=== PATIENT | female | born 1990 | race Caucasian/White ===

== ENCOUNTER 2019-06-11 16:10 | Emergency (ER) | payer BC, OTHER, SELFPAY ==
[~2019-06-11] VITALS: Ht 177.8 cm; Wt 79.7 kg
--- NOTE | 2019-06-11 16:52 | NUR ---
WEIGHT GUESSER: PT TO ROOM FROM LOBBY
[2019-06-11] MEDS ORDERED: PROP40TA PO (17:10)
[2019-06-11] MEDS ORDERED: BUPR300T49 PO (17:10)
[2019-06-11] MEDS ORDERED: AMPH25CA4 PO (17:10)
[2019-06-11] MEDS ORDERED: CITA20TA9 PO (17:10)
--- NOTE | 2019-06-11 17:12 | NUR ---
Pt resting on gunoel, P/W/D, call light within reach, NAD, denies additional needs, Crystal WALKER at BS for Eval and to discuss POC. WCTM. VSS
[2019-06-11] MEDS ORDERED: PROPARACAINE OPHTH 0.5%, 15ML ONE (17:17)
[2019-06-11] MEDS ORDERED: FLUORESCEIN OPHTHALMIC 1 MG STRIP ONE (17:17)
--- NOTE | 2019-06-11 17:47 | NUR ---
pt resting in gurney, NAD, P/W/D, RESP WNL, denies additional needs, call light in lap, WCTM.
[2019-06-11 18:09] VITALS: BP 124/79
--- NOTE | 2019-06-11 18:10 | NUR ---
pt resting in gurney on cell phone, eyes open, NAD, P/W/D, RESP WNL, denies additional needs, call light in lap, WCTM.
--- NOTE | 2019-06-11 19:01 | NUR ---
bedside report given to Steffany GALLAGHER. pt care transferred at this time.
== END 2019-06-11 20:18 | disposition home or self-care (01) ==
LOC: ED 17:02
DX: H92.03 Otalgia, bilateral (principal); R51 Headache
CPT/HCPCS: 99283

== ENCOUNTER 2019-08-23 01:07 | Emergency (ER) | payer BC ==
[~2019-08-23] VITALS: Ht 177.8 cm; Wt 76.6 kg
[~2019-08-23 01:07] MED LIST: AMPH25CA4 PO; BUPR300T49 PO; CITA20TA9 PO; PROP40TA PO
--- NOTE | 2019-08-23 01:15 | NUR ---
PT IN BR WHEN CALLED TO TRIAGE
--- NOTE | 2019-08-23 01:50 | NUR ---
PT REPORTS NAUSEA AND DIARRHEA SINCE 1999 LAST NIGHT. PROVIDED BSC.
[2019-08-23] MEDS ORDERED: SODIUM CHLORIDE 0.9% 1,000ML IVBOLUS ONE ×2 (02:00→04:30)
[2019-08-23] MEDS ORDERED: FAMOTIDINE 20 MG/2 ML IVPush ONE (02:00)
[2019-08-23] MEDS ORDERED: MAALOX/HYOSCYAMINE/LIDOCAINE 45 ML BTL PO ONE (02:00)
[2019-08-23] MEDS ORDERED: ONDANSETRON 2MG/ML, 2ML IVPush ONE (02:00)
[2019-08-23] MEDS ORDERED: SODIUM CHLORIDE FLUSH 10ML SYR IVF ONE (02:00)
[2019-08-23] MEDS ORDERED: MAALOX/HYOSCYAMINE/LIDOCAINE 45 ML BTL ONE (02:19)
[2019-08-23] MEDS ORDERED: ONDANSETRON 2MG/ML, 2ML ONE (02:19)
[2019-08-23] MEDS ORDERED: FAMOTIDINE 20 MG/2 ML ONE (02:20)
[2019-08-23 02:31] LABS: BASOPHILS # (AUTO) 0.02 x10^3/uL (0-0.1); BASOPHILS % (AUTO) 0 % (0-1); EOSINOPHILS % (AUTO) 1 % (1-7); LYMPHOCYTES # (AUTO) 1.07 x10^3/uL (1-3.4); LYMPHOCYTES % (AUTO) 8 % (22-44); MD NO; MEAN CORPUSCULAR HEMOGLOBIN 29.6 pg (27.0-34.8); MEAN CORPUSCULAR HGB CONC 33.2 g/dL (32.4-35.8); MEAN PLATELET VOLUME 8.1 fL (7.4-10.4); MONOCYTES # (AUTO) 0.42 x10^3/uL (0.2-0.8); MONOCYTES % (AUTO) 3 % (2-9); NEUTROPHILS # (AUTO) 12.58 x10^3/uL (1.8-6.8); NEUTROPHILS % (AUTO) 89 % (42-75); PLATELET COUNT 252 x10^3/uL (130-400); RED BLOOD COUNT 4.88 x10^6/uL (3.82-5.3); RED CELL DISTRIBUTION WIDTH 12.2 % (9.6-15.2)
[2019-08-23 02:44] LABS: ALANINE AMINOTRANSFERASE 25 U/L (12-78); ALBUMIN 4.5 g/dL (3.4-5.0); ANION GAP 6 mmol/L (5-15); CALCIUM 9.4 mg/dL (8.5-10.1); CHLORIDE 107 mmol/L (98-107); CREATININE 1.02 mg/dL (0.55-1.02)
[2019-08-23 02:47] LABS: ALKALINE PHOSPHATASE 61 U/L (45-117); BILIRUBIN,TOTAL 0.9 mg/dL (0.2-1.0); TOTAL PROTEIN 7.9 g/dL (6.4-8.2)
--- NOTE | 2019-08-23 02:52 | NUR ---
PT ATTEMPTING TO LEAVE URINE SAMPLE AND STOOL SAMPLE.
--- NOTE | 2019-08-23 03:31 | NUR ---
PT UNABLE TO LEAVE STOOL SAMPLE AT THIS TIME. PT REPORTS NAUSEA HAS RESOLVED AND PAIN HAS IMPROVED.
[2019-08-23 03:38] LABS: HCG UR SG 1.028 (1.003-1.030); MICROSCOPIC INDICATED
--- NOTE | 2019-08-23 05:00 | NUR ---
STOOL SAMPLE TAKEN TO LAB.
[2019-08-23 05:10] VITALS: BP 99/56
[2019-08-23] MEDS ORDERED: OMNIPAQUE 350 MG/ML, 100ML BOTTLE ONE (05:16)
[2019-08-23 06:08] LABS: CLOSTRIDIUM DIFFICILE ANTIGEN NEGATIVE; CLOSTRIDIUM DIFFICILE TOXIN NEGATIVE (Negative)
== END 2019-08-23 06:43 | disposition home or self-care (01) ==
LOC: ED 01:37
DX: A08.4 Viral intestinal infection, unspecified (principal); R19.7 Diarrhea, unspecified; R94.31 Abnormal electrocardiogram [ECG] [EKG]; R10.13 Epigastric pain; M54.5 Low back pain
CPT/HCPCS: 36415; 74177; 80053; 81001; 81025; 83690; 85025; 87086; 87324; 89055; 93005; 96361; 96374; 96375; 99285; J2405; J3490; J7030; Q9967